=== PATIENT | male | born 1985 | race African-American/Black ===

== ENCOUNTER 2018-12-09 13:34 | Inpatient (IN) | payer OTHER ==
[2018-12-09 17:14] VITALS: BMI 36.4
--- NOTE | 2018-12-09 17:58 | HP ---
CIWA Score - Admission Criteria OASAS Guidelines: Admission for Medically Managed Detox: Requires at least one of the followin. CIWA greater than 12 2. Seizures within the past 24 hours 3. Delirium tremens within the past 24 hours 4. Hallucinations within the past 24 hours 5. Acute intervention needed for co occurring medical disorder 6. Acute intervention needed for co occurring psychiatric disorder 7. Severe withdrawal that cannot be handled at a lower level of care (continued vomiting, continued diarrhea, abnormal vital signs) requiring intravenous medication and/or fluids 8. Admission ROS S - HPI Chief Complaint: here for rehab 33 yo was in the MH [facility] at [facility] for the last 4 days for depression, hearing voices. Was put on abilify- feels better today. States was using crack, heroin and alcohol before admission into hospital. Left the hospital today and was sent here directly. Has not used any substances since 12/05. pt is homeless, lives in a chcf, family in [facility]. does not work, recieves SSI for disability due to MH issues alcohol- uses 2 pints, and beer daily- no h/o seizures heroin- 2 bags/week- sniffing, no h/o OD crack- lots- 8 ball a day MJ: 3 blunts a day denies BZO use DUR-ISTOP: suboxone 10/01/18 #30 Allergies/Adverse Reactions: Allergies Allergy/AdvReac Type Severity Reaction Status Date / Time haloperidol [From Haldol] Allergy Hives Verified 12/09/18 17:08 risperidone [From Risperdal] Allergy Hives Verified 12/09/18 17:04 turkey Allergy Swelling Verified 12/09/18 17:08 - Ebola screening Have you traveled outside of the country in the last 21 days: No Have you had contact with anyone from an Ebola affected area: No Patient History - Patient Medical History Hx Anemia: Yes Hx Hypertension: Yes (no meds) Hx Depression: Yes Hx Schizophrenia: Yes - Patient Surgical History Past Surgical History: No - PPD History Documented Results: Negative w/o proof - Smoking Cessation Smoking history: Current every day smoker Have you smoked in the past 12 months: Yes Aproximately how many cigarettes per day: 10 Hx Chewing Tobacco Use: No Initiated information on smoking cessation: Yes 'Breaking Loose' booklet given: 12/09/18 - Substance & Tx. History Hx Alcohol Use: Yes Hx Substance Use: Yes Substance Use Type: Alcohol, Cocaine, Heroin, Marijuana Hx Substance Use Treatment: Yes - Substances abused Heroin Other (specify): sniff Frequency: 1-2 times per week Amount used: 2 bags Age of first use: 32 Date of last use: 12/05/18 Crack Substance route: Smoking Frequency: Daily Amount used: $200 Age of first use: 33 Date of last use: 12/05/18 Alcohol Substance route: Oral Frequency: Daily Amount used: 24 pack of beer Age of first use: 17 Date of last use: 12/05/18 Family Disease History - Family Disease History Family History: Unable to Obtain (in [facility]) Family Disease History: Diabetes: Mother, Heart Disease: Mother Admission Physical Exam S - Vital Signs Vital Signs: Vital Signs - 24 hr 12/09/18 17:09 Temperature 98.7 F Pulse Rate 72 Respiratory 17 Rate Blood Pressure 119/84 - Physical General Appearance: Yes: Within Normal Limits, Nourished, Disheveled HEENTM: Yes: Within Normal Limits, EOMI, Hearing grossly Normal Respiratory: Yes: Within Normal Limits, Chest Non-Tender, Lungs Clear Neck: Yes: Within Normal Limits, No masses,lesions,Nodules Cardiology: Yes: Within Normal Limits, Regular Rhythm, Regular Rate Abdominal: Yes: Within Normal Limits, Normal Bowel Sounds, Non Tender, Flat Back: Yes: Within Normal Limits, Normal Inspection Musculoskeletal: Yes: Within Normal Limits, full range of Motion, Gait Steady Extremities: Yes: Within Normal Limits, Normal Capillary Refill, Normal Inspection, Normal Range of Motion Neurological: Yes: Within Normal Limits, molding engineer II-XII NML intact, Fully Oriented, Alert, Motor Strength 5/5, Normal Mood/Affect, Unresponsive Integumentary: Yes: Within Normal Limits, Normal Color, Dry Lymphatic: Yes: Within Normal Limits - Diagnostic (1) Alcohol use disorder Current Visit: Yes Status: Acute (2) Cocaine use disorder Current Visit: Yes Status: Acute (3) Cannabis use disorder, mild, abuse Current Visit: Yes Status: Acute (4) Heroin use disorder, mild Current Visit: Yes Status: Acute (5) Schizo affective schizophrenia Current Visit: Yes Status: Acute Breathalyzer - Breathalyzer Breathalyzer: 0 Urine Drug Screen - Test Device Lot number: [id number] Expiration date: 11/12/19 - Control Is test valid?: Yes - Results Drug screen NEGATIVE: Yes Urine drug screen results: THC-Marijuana, PIPO-Cocaine, BZO-Benzodiazepines Inpatient Rehab Admission - Rehab Decision to Admit Inpatient rehab admission?: Yes - Initial Determination Are CD services needed?: Yes Free of communicable disease: Yes Not in need of hospitalization: Yes - Rehab Admission Criteria Previous failed treatment: Yes Poor recovery environment: Yes Comorbidities: Yes Lacks judgement: Yes Patient is meeting Inpatient Rehab admission criteria:: Yes (alcohol and THC, crack cocaine)
[2018-12-09] MEDS ORDERED: MAGNESIUM HYDROX 2400MG/30ML ORAL SUSPENSION 30 ML CUP PO PRN (18:07)
[2018-12-09] MEDS ORDERED: MAGNESIUM CITRATE 300 ML BOTTLE PO PRN (18:07)
[2018-12-09] MEDS ORDERED: MENTHOL/PHENOL 1 EACH UD MM PRN (18:07)
[2018-12-09] MEDS ORDERED: guaiFENesin 200 MG/10 ML 10 ML UNIT-DOSE CUPS PO PRN (18:07)
[2018-12-09] MEDS ORDERED: ACETAMINOPHEN 325 MG TABLET (FP) PO PRN (18:07)
[2018-12-09] MEDS ORDERED: LOPERAMIDE HCL 2 MG CAPSULE PO PRN (18:07)
[2018-12-09] MEDS ORDERED: P-EPHED 60MG/TRIPROLIDI 2.5MG TABLET PO PRN (18:07)
[2018-12-09] MEDS ORDERED: IBUPROFEN 400 MG TABLET (FP) PO PRN (18:07)
[2018-12-09] MEDS ORDERED: TUBERCULIN PPD 5 TU/0.1ML VIAL ID ONE (19:11)
[2018-12-09] MEDS: THIAMINE HCL 100 MG TABLET (FP) PO SCH (21:49)
[2018-12-10 07:33] LABS: PH,URINE 5.5 (5.0-8.0); URINE APPEARANCE CLOUDY; URINE BILIRUBIN NEGATIVE (NEGATIVE); URINE COLOR YELLOW; URINE GLUCOSE (UA) NEGATIVE (NEGATIVE); URINE KETONE NEGATIVE (NEGATIVE); URINE LEUK ESTERASE NEGATIVE (NEGATIVE); URINE NITRITE NEGATIVE (NEGATIVE); URINE PROTEIN TRACE (NEGATIVE); URINE UROBILINOGEN 0.2 mg/dL (0.2-1.0)
[2018-12-10] MEDS: ARIPiprazole 10 MG TABLET PO SCH (10:34)
[2018-12-10] MEDS: PRENATAL VITAMINS W/ FOLIC ACID TABLET (FP) PO SCH (10:35)
[2018-12-10] MEDS: NICOTINE 14 MG/24 HOURS TOPICAL PATCH TD SCH (10:35)
--- NOTE | 2018-12-10 11:06 | CONSULT ---
[facility] Psychiatric Consult - Data Date of interview: 12/10/18 Admission source: [facility] inpatient psychiatry Identifying data: Mr Mora is a 33 years old single black male, unemployed receiving SSI, homeless seeking detox treatment for alcohol opioid and cocaine Substance Abuse History: Reports history of alcohol heroin and cocaine use. refer to addiction counselor's summary for further information Medical History: Significant for hypertension. Smokes 10 cigarettes daily Psychiatric History: Reports that his first psychiatricc contact was as adolescent due out of control behavior. Reports multiple psychiatric hospitalizations as an adolescent and adult mostly in [place], [place] but also in [facility]. He is known to [facility] and most recently to [facility] where he was admitted a few days ago because of command auditory hallucinations. He was discharged on Abilify 10 mg po daily and referred to this facility for inpatient rehab. Denies current OPD care. Reports a few suicidal attempts by overdose on pills and self-mutilations(cutting). At present , denies experiencing psychotic, manic or depressive symptoms, S/H ideations. However, reports sleeping poorly Physical/Sexual Abuse/Trauma History: Denies history of emotional, physical or sexual abuse as well as DV relationship. No service Additional Comment: Reports history multiple previous arrests including one felony conviction. Denies being on parole/probation at present Mental Status Exam - Mental Status Exam Alert and Oriented to: Time, Place, Person Cognitive Function: Fair Patient Appearance: Well Groomed Mood: Hopeful, Euthymic Patient Behavior: Cooperative Speech Pattern: Clear Voice Loudness: Normal Thought Process: Intact Thought Disorder: Not Present Hallucinations: Denies Suicidal Ideation: Denies Homicidal Ideation: Denies Insight/Judgement: Fair Sleep: Poorly Appetite: Good Muscle strength/Tone: Normal Gait/Station: Normal Psychiatric Findings - Problem List ([place] 1, 2,3) (1) Schizoaffective disorder Current Visit: Yes Status: Chronic (2) Substance-induced sleep disorder Current Visit: Yes Status: Acute (3) Alcohol dependence Current Visit: Yes Status: Acute (4) Opioid dependence Current Visit: Yes Status: Acute (5) Cocaine dependence Current Visit: Yes Status: Acute (6) Nicotine dependence Current Visit: Yes Status: Chronic (7) HTN (hypertension) Current Visit: Yes Status: Chronic - Initial Treatment Plan Initial Treatment Plan: 1) Continue Abilify 10 mg po daily. 2) Continueinpatient detoxification
[2018-12-10] MEDS: THIAMINE HCL 100 MG TABLET (FP) PO SCH (21:24)
[2018-12-10] MEDS: MELATONIN 5 MG TABLETS PO PRN (21:24)
[2018-12-11] MEDS: NICOTINE 14 MG/24 HOURS TOPICAL PATCH TD SCH (10:44)
[2018-12-11] MEDS: ARIPiprazole 10 MG TABLET PO SCH (10:44)
[2018-12-11] MEDS: PRENATAL VITAMINS W/ FOLIC ACID TABLET (FP) PO SCH (10:44)
[2018-12-11 12:15] LABS: HEMATOCRIT 43.3 % (35.4-49); HEMOGLOBIN 14.2 GM/dL (11.7-16.9); MCH 27.7 pg (25.7-33.7); MCHC 32.9 g/dl (32.0-35.9); MEAN CELL VOLUME 84.3 fl (80-96); MEAN PLT VOLUME 8.5 fl (7.5-11.1); PLATELET COUNT 224 K/MM3 (134-434); RBC 5.13 M/mm3 (4.00-5.60); RDW 14.4 % (11.9-15.9); WHITE BLOOD COUNT 7.1 K/mm3 (4.0-10.0)
[2018-12-11 12:26] LABS: ALBUMIN 3.7 g/dl (3.4-5.0); BILIRUBIN,TOTAL 0.2 mg/dL (0.2-1); CREATININE 1.1 mg/dL (0.55-1.3); POTASSIUM 4.1 mmol/L (3.5-5.1); TOT PROT 6.8 g/dl (6.4-8.2)
[2018-12-11] MEDS: MAG HYDROX/AL HYDROX/SIMETH 30 ML UNIT-DOSE CUP PO PRN (17:22)
[2018-12-11] MEDS: THIAMINE HCL 100 MG TABLET (FP) PO SCH (21:39)
[2018-12-11] MEDS: MELATONIN 5 MG TABLETS PO PRN (21:39)
[2018-12-12] MEDS: MAG HYDROX/AL HYDROX/SIMETH 30 ML UNIT-DOSE CUP PO PRN (07:50)
[2018-12-12] MEDS: NICOTINE 14 MG/24 HOURS TOPICAL PATCH TD SCH (10:37)
[2018-12-12] MEDS: PRENATAL VITAMINS W/ FOLIC ACID TABLET (FP) PO SCH (10:37)
[2018-12-12] MEDS: ARIPiprazole 10 MG TABLET PO SCH (10:37)
--- NOTE | 2018-12-12 12:47 | PN ---
[facility] Progress Note Note: Laboratory Tests 12/09/18 12/11/18 12/11/18 18:30 08:20 08:20 WBC 7.1 RBC 5.13 Hgb 14.2 Hct 43.3 MCV 84.3 MCH 27.7 MCHC 32.9 RDW 14.4 Plt Count 224 MPV 8.5 Sodium 139 Potassium 4.1 Chloride 105 Carbon Dioxide 28 Anion Gap 6 L BUN 11 Creatinine 1.1 Est GFR (CKD-EPI)AfAm 103.13 Est GFR (CKD-EPI)NonAf 88.98 Random Glucose 148 H Calcium 9.0 Total Bilirubin 0.2 AST 15 ALT 29 Alkaline Phosphatase 87 Total Protein 6.8 Albumin 3.7 Urine Color Yellow Urine Appearance Cloudy Urine pH 5.5 Ur Specific [place] 1.022 Urine Protein Trace Urine Glucose (UA) Negative Urine Ketones Negative Urine Blood Negative Urine Nitrite Negative Urine Bilirubin Negative Urine Urobilinogen 0.2 Ur Leukocyte Esterase Negative RPR Titer 12/11/18 08:20 WBC RBC Hgb Hct MCV MCH MCHC RDW Plt Count MPV Sodium Potassium Chloride Carbon Dioxide Anion Gap BUN Creatinine Est GFR (CKD-EPI)AfAm Est GFR (CKD-EPI)NonAf Random Glucose Calcium Total Bilirubin AST ALT Alkaline Phosphatase Total Protein Albumin Urine Color Urine Appearance Urine pH Ur Specific [place] Urine Protein Urine Glucose (UA) Urine Ketones Urine Blood Urine Nitrite Urine Bilirubin Urine Urobilinogen Ur Leukocyte Esterase RPR Titer Nonreactive REVIEW OF H/P--NO HX DM PT WAS SEEN BY THE [employer]AUR[employer]A DIRECTOR TODAY. FBS RECOMMENDED PLAN:BGM ACBK X 3 DAYS R/O HYPERGLYCEMIA.
[2018-12-12] MEDS: THIAMINE HCL 100 MG TABLET (FP) PO SCH (22:00)
[2018-12-12] MEDS: MELATONIN 5 MG TABLETS PO PRN (22:00)
[2018-12-13] MEDS: ARIPiprazole 10 MG TABLET PO SCH (10:26)
[2018-12-13] MEDS: PRENATAL VITAMINS W/ FOLIC ACID TABLET (FP) PO SCH (10:26)
[2018-12-13] MEDS: hydrOXYzine PAMOATE 50 MG CAPSULE (FP) PO PRN ×2 (10:26→21:45)
[2018-12-13] MEDS: NICOTINE 14 MG/24 HOURS TOPICAL PATCH TD SCH (10:27)
[2018-12-13] MEDS: THIAMINE HCL 100 MG TABLET (FP) PO SCH (21:45)
[2018-12-13] MEDS: MELATONIN 5 MG TABLETS PO PRN (21:45)
[2018-12-14] MEDS: ARIPiprazole 10 MG TABLET PO SCH (09:22)
[2018-12-14] MEDS: PRENATAL VITAMINS W/ FOLIC ACID TABLET (FP) PO SCH (09:22)
[2018-12-14] MEDS: hydrOXYzine PAMOATE 50 MG CAPSULE (FP) PO PRN ×2 (09:22→22:01)
[2018-12-14] MEDS: NICOTINE 14 MG/24 HOURS TOPICAL PATCH TD SCH (09:23)
[2018-12-14] MEDS: THIAMINE HCL 100 MG TABLET (FP) PO SCH (22:01)
[2018-12-14] MEDS: MELATONIN 5 MG TABLETS PO PRN (22:01)
[2018-12-15 06:32] VITALS: TEMP 97.9
[2018-12-15] MEDS: hydrOXYzine PAMOATE 50 MG CAPSULE (FP) PO PRN ×2 (06:43→10:52)
[2018-12-15] MEDS: ARIPiprazole 10 MG TABLET PO SCH (10:52)
[2018-12-15] MEDS: PRENATAL VITAMINS W/ FOLIC ACID TABLET (FP) PO SCH (10:52)
[2018-12-15] MEDS: cloNIDine HCL 0.1 MG TABLET PO PRN ×2 (10:52→21:37)
[2018-12-15] MEDS: NICOTINE 14 MG/24 HOURS TOPICAL PATCH TD SCH (10:53)
[2018-12-15] MEDS: THIAMINE HCL 100 MG TABLET (FP) PO SCH (21:36)
[2018-12-15] MEDS: MELATONIN 5 MG TABLETS PO PRN (21:36)
[2018-12-16] MEDS: ARIPiprazole 10 MG TABLET PO SCH (10:29)
[2018-12-16] MEDS: PRENATAL VITAMINS W/ FOLIC ACID TABLET (FP) PO SCH (10:29)
[2018-12-16] MEDS: NICOTINE 14 MG/24 HOURS TOPICAL PATCH TD SCH (10:30)
[2018-12-16] MEDS: cloNIDine HCL 0.1 MG TABLET PO PRN (10:30)
[2018-12-16] MEDS: hydrOXYzine PAMOATE 50 MG CAPSULE (FP) PO PRN ×2 (10:32→17:46)
[2018-12-16 11:29] VITALS: BP 136/72; PULSE 85
--- NOTE | 2018-12-16 12:53 | PN ---
S Progress Note Note: C/O ANXIETY AND WANTS CLONIDINE ON SCHEDULE. REPORTS HX HEROIN, CRACK AND ALCOHOL USE. Vital Signs - 24 hr 12/15/18 12/16/18 12/16/18 21:07 00:30 03:30 Temperature Pulse Rate 73 Respiratory 18 18 Rate Blood Pressure 132/69 12/16/18 12/16/18 06:32 10:00 Temperature 97.9 F Pulse Rate 65 85 Respiratory 18 Rate Blood Pressure 121/79 136/72 Laboratory Tests 12/09/18 12/11/18 12/11/18 18:30 08:20 08:20 WBC 7.1 RBC 5.13 Hgb 14.2 Hct 43.3 MCV 84.3 MCH 27.7 MCHC 32.9 RDW 14.4 Plt Count 224 MPV 8.5 Sodium 139 Potassium 4.1 Chloride 105 Carbon Dioxide 28 Anion Gap 6 L BUN 11 Creatinine 1.1 Est GFR (CKD-EPI)AfAm 103.13 Est GFR (CKD-EPI)NonAf 88.98 POC Glucometer Random Glucose 148 H Calcium 9.0 Total Bilirubin 0.2 AST 15 ALT 29 Alkaline Phosphatase 87 Total Protein 6.8 Albumin 3.7 Urine Color Yellow Urine Appearance Cloudy Urine pH 5.5 Ur Specific [place] 1.022 Urine Protein Trace Urine Glucose (UA) Negative Urine Ketones Negative Urine Blood Negative Urine Nitrite Negative Urine Bilirubin Negative Urine Urobilinogen 0.2 Ur Leukocyte Esterase Negative RPR Titer 12/11/18 12/12/18 12/13/18 08:20 16:40 06:32 WBC RBC Hgb Hct MCV MCH MCHC RDW Plt Count MPV Sodium Potassium Chloride Carbon Dioxide Anion Gap BUN Creatinine Est GFR (CKD-EPI)AfAm Est GFR (CKD-EPI)NonAf POC Glucometer 114 111 Random Glucose Calcium Total Bilirubin AST ALT Alkaline Phosphatase Total Protein Albumin Urine Color Urine Appearance Urine pH Ur Specific [place] Urine Protein Urine Glucose (UA) Urine Ketones Urine Blood Urine Nitrite Urine Bilirubin Urine Urobilinogen Ur Leukocyte Esterase RPR Titer Nonreactive 12/15/18 06:42 WBC RBC Hgb Hct MCV MCH MCHC RDW Plt Count MPV Sodium Potassium Chloride Carbon Dioxide Anion Gap BUN Creatinine Est GFR (CKD-EPI)AfAm Est GFR (CKD-EPI)NonAf POC Glucometer 119 Random Glucose Calcium Total Bilirubin AST ALT Alkaline Phosphatase Total Protein Albumin Urine Color Urine Appearance Urine pH Ur Specific [place] Urine Protein Urine Glucose (UA) Urine Ketones Urine Blood Urine Nitrite Urine Bilirubin Urine Urobilinogen Ur Leukocyte Esterase RPR Titer [place] IN EARLY REMISSION ANXIETY PLAN:CLONIDINE 0.1 MG PO BID X 7 DAYS(WITH PARAMETERS BP >110/60 HR >65 [place]IST[place]IL 50 MG PO Q4H PRN INCREASE PO FLUIDS
--- NOTE | 2018-12-16 18:19 | PN ---
[facility] Progress Note Note: Vital Signs Temperature 97.9 F 12/16/18 06:32 Pulse Rate 85 12/16/18 10:00 Respiratory Rate 18 12/16/18 06:32 Blood Pressure 136/72 12/16/18 10:00 O2 Sat by Pulse Oximetry (%) Patient AMA does not wish to continue treatment. Patient stable. Diagnostic (1) Alcohol use disorder Current Visit: Yes Status: Acute (2) Cocaine use disorder Current Visit: Yes Status: Acute (3) Cannabis use disorder, mild, abuse Current Visit: Yes Status: Acute (4) Heroin use disorder, mild Current Visit: Yes Status: Acute (5) Schizo affective schizophrenia Current Visit: Yes Status: Acute
[2018-12-16] MEDS ORDERED: cloNIDine HCL 0.1 MG TABLET PO SCH (22:00)
== END 2018-12-16 18:47 | disposition left against medical advice (07) | DRG 770 ==
LOC: YASAS 13:34 → Y6N 18:21 → Y5N 18:50
PROVIDERS: ADMIT Surgery; ATTEND Neuromusculoskeletal Medicine & OMM
PROC: HZ42ZZZ Group Counseling for Substance Abuse Treatment, Cognitive-Behavioral (ICD-10-PCS; principal; 2018-12-09)
DX: F11.20 Opioid dependence, uncomplicated (principal); F10.20 Alcohol dependence, uncomplicated; F14.20 Cocaine dependence, uncomplicated; F12.20 Cannabis dependence, uncomplicated; F17.210 Nicotine dependence, cigarettes, uncomplicated; F25.9 Schizoaffective disorder, unspecified; F19.282 Other psychoactive substance dependence with psychoactive substance-induced sleep disorder; F32.9 Major depressive disorder, single episode, unspecified; I10 Essential (primary) hypertension
CPT/HCPCS: 36415; 80053; 81003; 82962; 85027; 86593; J0735